=== PATIENT | female | born 1995 | race Two or more races ===

== ENCOUNTER 2024-05-03 22:44 | Emergency (ER) | payer OTHER, SELFPAY ==
--- NOTE | 2024-05-03 | ECG_ITS ---
Test Reason : CHEST PAIN Blood Pressure : */* mmHG Vent. Rate : 67 BPM Atrial Rate : 67 BPM P-R Int : 120 ms QRS Dur : 88 ms QT Int : 402 ms P-R-T Axes : 69 66 44 degrees QTcB Int : 424 ms Normal sinus rhythm Normal ECG No previous ECGs available Referred By: Generic ED Physician Electronically Signed By: Vinny Singh
--- NOTE | ~2024-05-03 | XR_ITS ---
CLINICAL HISTORY: chest pain 2 view chest x-ray Comparison: None Findings: The lungs are clear. Normal size heart. No acute fracture. IMPRESSION: 1. No acute findings. This document has been electronically signed by: Oli Leone MD on 05/04/2024 00:00:00
[2024-05-03 22:52] VITALS: BP 126/56; PULSE 74; RESP 17; TEMP 36.8; O2SAT 95; BMI 46.9
[2024-05-03 23:10] LABS: MANUAL DIFF FLAG NO
[2024-05-03 23:11] LABS: Basophils Absolute Auto 0.1 X10*3/uL (0.0-0.2); Basophils Percent Auto 0.6 % (0-2); Eosinophils Absolute Auto 0.3 X10*3/uL (0.0-0.4); Eosinophils Percent Auto 2.9 % (0-4); Hematocrit 36.5 % (37.0-47.0); Hemoglobin 12.3 g/dl (12.0-16.0); Imm Gran Abs Auto 0.03 X10*3/uL (0.00-0.03); Imm Gran Pct Auto 0.3 % (0.0-0.4); Lymphocytes Absolute Auto 3.8 X10*3/uL (1.2-4.9); Lymphocytes Percent Auto 32.9 % (20-40); Mean Corpuscular HGB Conc 33.7 g/dl (31.0-35.0); Mean Corpuscular Hemoglobin 29.8 pg (27.0-33.0); Mean Corpuscular Volume 88.4 fL (80.0-98.0); Mean Platelet Volume 9.3 fL (9.4-12.3); Monocytes Absolute Auto 1.1 X10*3/uL (0.1-1.2); Monocytes Percent Auto 9.1 % (2-11); Neutrophils Absolute Auto 6.3 x10*3/uL (2.0-8.3); Neutrophils Percent Auto 54.2 % (45-73); Platelet Count 239 X10*3/uL (160-400); Red Blood Count 4.13 X10*6/uL (4.20-5.50); Red Cell Distribution Width 11.9 % (11.0-16.0); White Blood Count 11.6 X10*3/uL (4.8-10.8)
[2024-05-03 23:29] LABS: Alanine Aminotransferase 14 U/L (0-31); Albumin Level 3.8 g/dL (3.5-5.0); Alkaline Phosphatase 74 U/L (39-117); Anion Gap 14 (12-20); Aspartate Amino Transferase 21 U/L (5-31); Bilirubin Total 0.3 mg/dL (0.0-1.0); Blood Urea Nitrogen 15 mg/dL (9-16); Calcium 9.1 mg/dL (8.4-10.2); Carbon Dioxide 20 mmol/L (22-29); Chloride 110 mmol/L (96-108); Creatinine Clr Calc Pharmacy 154.4; Estimated Glomerular Filt Rate > 60; Glucose Random 95 mg/dL (60-115); Potassium 3.7 mmol/L (3.3-5.1); Sodium 140 mmol/L (135-145); Total Protein 7.7 g/dL (6.5-8.0)
[2024-05-03 23:35] LABS: Troponin-I High Sensitivity < 2.7 ng/L (<3.5-17.0)
[2024-05-03 23:47] LABS: Influenza A PCR NEGATIVE (Negative); Influenza B PCR NEGATIVE (Negative); Resp Syncy Virus RNA Qual PCR NEGATIVE (Negative); SARS COV2 PCR INHOUSE NEGATIVE (Negative)
--- NOTE | 2024-05-04 00:06 | ED_ITS ---
HPI - Chest Pain General Chief Complaint: Chest Pain Stated Complaint: chest pain/epileptic Time Seen by Provider: 05/03/24 23:37 Source: patient, RN notes reviewed and old records reviewed Mode of arrival: ambulatory Limitations: no limitations History of Present Illness ED Provider: Xin NIXON narrative: 29-year-old Female past medical history significant for epileptic seizures Patient reports that she started with chest pain about 6 days ago. The pain was initially intermittent. Today the patient reports that her pain became constant. She reports some occasional palpitations nausea Denies any fevers, chills, cough, shortness of breath She reports that she had a similar episode about 2 years ago when she was She takes Keppra for her history of epilepsy She reports that she skipped a few doses 4 days but did take it today Related Data Allergies Allergy/AdvReac Type Severity Reaction Status Date / Time No Known Allergies Allergy Verified 05/03/24 22:54 Review of Systems 2 Constitutional: Constitutional: Denies body ache(s), Denies chills, Denies fever(s) and Denies headache(s) Eyes: Eyes: Denies blurry vision ENT: Denies vertigo, Denies dizziness and Denies headache(s) Cardiovascular: Cardiovascular: Reports chest pain and Reports lightheadedness Respiratory: Respiratory: Denies cough Gastrointestinal: Gastrointestinal: Denies abdominal pain, Reports nausea and Denies vomiting Musculoskeletal: Musculoskeletal: Denies back pain Integumentary/Breasts: Skin/Breast: Denies rash Neurologic: Denies vertigo, Denies dizziness and Denies headache(s) PMFSH Social History Social History Advance Directives: No Advance Directives Information Provided: Yes Do you have a plan to hurt others: No Plan Physical Exam 2 Vital Signs: Vital Signs: Last Vital Signs Temp 98.2 F 05/03/24 22:52 Pulse 74 05/03/24 22:52 Resp 17 05/03/24 22:52 BP 126/56 L 05/03/24 22:52 Pulse Ox 95 05/03/24 22:52 O2 Del Method Room Air 05/03/24 22:52 BMI result Body Mass Index 46.9 Const: General: healthy appearing, comfortable, no acute distress, alert and awake Nutritional Appearance: well nourished Orientation/consciousness: p atient oriented x3 HEENT: Head: Yes normocephalic and Yes atraumatic Eyes: Eyelids: Yes eyelids normal Conjunctivae: conjunctivae normal S clerae: sclerae normal Corneas: corneas normal Pupils: Equal, round and reactive pupils present EOM: EOMs intact bilaterally Neck: Neck: Yes full ROM Resp: Effort & Inspection: normal respiratory effort, able to speak in complete sentences, no audible wheezes and not labored Auscultation: clear to auscultation bilaterally Cardio: Rate: regular rate Rhythm: regular rhythm GI: Inspection: No distended Palpation (GI): Soft to palpation, not firm, nontender, no guarding and not rigid Skin: General skin exam: elasticity normal Neuro: General: patient oriented x3 Cranial nerves: Yes Equal, round and reactive pupils present and Yes Bilaterally intact EOM present Cognition (Neuro): normal cognition Medical Decision Making Medical Decision Making [facility] Narrative: 29-year-old female presents for evaluation of chest pain. She actually he reports that her chest pain has resolved at time my evaluation. Her pain has been intermittent several days now and a troponin is negative, EKG is nonischemic, she rules out for ACS. Her chest x-ray was clear, no is likely musculoskeletal in origin. I discussed this with the patient and she will follow up with her primary doctor. Differential Diagnosis Differential Diagnoses: The differential diagnosis associated with the presentation includes Chest pain ACS less likely Bronchitis/pneumonia Chest wall pain Admission/Observation Consideration of admission/observation: Escalation of care including admission/observation considered Lab Data [facility] Lab Attestation statement: I reviewed the patient's lab results. Mild leukocytosis to 11.6 which could be reactive or related to a virus. The patient does not have a left shift. No significant electrolyte abnormalities warranting intervention 05/03/24 23:00 05/03/24 23:00 Labs: Lab Results 05/03/24 Range/Units 23:00 WBC 11.6 H (4.8-10.8) X10*3/uL RBC 4.13 L (4.20-5.50) X10*6/uL Hgb 12.3 (12.0-16.0) g/dl Hct 36.5 L (37.0-47.0) % MCV 88.4 (80.0-98.0) fL MCH 29.8 (27.0-33.0) pg MCHC 33.7 (31.0-35.0) g/dl RDW 11.9 (11.0-16.0) % Plt Count 239 (160-400) X10*3/uL MPV 9.3 L (9.4-12.3) fL Immature Gran % (Auto) 0.3 (0.0-0.4) % Neut % (Auto) 54.2 (45-73) % Lymph % (Auto) 32.9 (20-40) % Luna % (Auto) 9.1 (2-11) % Eos % (Auto) 2.9 (0-4) % Baso % (Auto) 0.6 (0-2) % Lymph # (Auto) 3.8 (1.2-4.9) X10*3/uL Luna # (Auto) 1.1 (0.1-1.2) X10*3/uL Eos # (Auto) 0.3 (0.0-0.4) X10*3/uL Baso # (Auto) 0.1 (0.0-0.2) X10*3/uL Abs Immat Gran (auto) 0.03 (0.00-0.03) X10*3/uL Absolute Neuts (auto) 6.3 (2.0-8.3) x10*3/uL Absolute Nucleated RBC 0.000 (0.0-0.012) X10*3/uL Nucleated RBC % (auto) 0.0 (0.0-0.2) /100WBC Sodium 140 (135-145) mmol/L Potassium 3.7 (3.3-5.1) mmol/L Chloride 110 H (96-108) mmol/L Carbon Dioxide 20 L (22-29) mmol/L Anion Gap 14 (12-20) BUN 15 (9-16) mg/dL Creatinine 0.62 (0.5-1.4) mg/dL Estim Creat Clear Calc 154.4 Estimated GFR > 60 Random Glucose 95 (60-115) mg/dL Calcium 9.1 (8.4-10.2) mg/dL Total Bilirubin 0.3 (0.0-1.0) mg/dL AST 21 (5-31) U/L ALT 14 (0-31) U/L Alkaline Phosphatase 74 (39-117) U/L Troponin I High Sens < 2.7 (<3.5-17.0) ng/L Total Protein 7.7 (6.5-8.0) g/dL Albumin 3.8 (3.5-5.0) g/dL Influenza Type A (PCR) NEGATIVE (Negative) Influenza Type B (PCR) NEGATIVE (Negative) RSV RNA Qual (PCR) NEGATIVE (Negative) SARS-CoV-2 RNA (RT-PCR) NEGATIVE (Negative) Independent Interpretation I performed an independent interpretation of an: EKG Interpretation: Sinus rhythm with a rate of [address] segment elevations or depression Radiology Impression Discussion of test interpretation with radiology: I have reviewed the radiologist's reading. Radiologist Impression: Findings: The lungs are clear. Normal size heart. No acute fracture. IMPRESSION: 1. No acute findings. This document has been electronically signed by: Oli Leone MD on 05/04/2024 00:00:00 Discharge Plan Discharge Clinical Impression: Chest pain Patient Disposition: Home, Self-Care Instructions: Chest Pain (ED) Additional Instructions: Your workup in the ER today was reassuring. This includes your blood work, EKG, chest x-ray Your chest pain may be musculoskeletal in origin. I recommend using ibuprofen or Tylenol for the pain Follow-up with your primary doctor, return for new or worsening symptoms Print Language: Colombian
[2024-05-04 00:28] VITALS: BP 126/56; PULSE 74; RESP 17; TEMP 36.8; O2SAT 95
== END 2024-05-04 00:28 | disposition home or self-care (01) ==
PROVIDERS: Emergency Provider Emergency Medicine; PCP Internal Medicine
DX: R07.9 Chest pain, unspecified (principal); Z03.818 Encounter for observation for suspected exposure to other biological agents ruled out
CPT/HCPCS: 0241U; 71046; 80053; 84484; 85025; 93005; 99283

== ENCOUNTER → 2024-05-03 22:48 | Outpatient (BNV) | payer OTHER, SELFPAY | PROVIDERS: Emergency Provider Emergency Medicine; PCP Internal Medicine; Visit Provider Internal Medicine Cardiovascular Disease | DX: R07.9 Chest pain, unspecified (principal) | CPT/HCPCS: 93010 ==

== ENCOUNTER → 2024-05-03 23:00 | Outpatient (BNV) | payer OTHER, SELFPAY | PROVIDERS: Emergency Provider Emergency Medicine; PCP Internal Medicine; Visit Provider Radiology Diagnostic Radiology | DX: R07.9 Chest pain, unspecified (principal) | CPT/HCPCS: 71046 ==

== ENCOUNTER 2024-12-03 19:21 | Emergency (ER) | payer OTHER, SELFPAY ==
--- NOTE | ~2024-12-03 | XR_ITS ---
CLINICAL HISTORY: CONSTIPATION 1 view abdomen Comparison: None provided Findings: No pneumoperitoneum or pneumatosis. No significant stool burden. No abnormal calcifications. No acute fractures. IMPRESSION: The bowel gas pattern is normal. No significant stool burden. This document has been electronically signed by: Kaya Farias MD on 12/03/2024 23:03:43
[2024-12-03 19:56] VITALS: BP 130/77; PULSE 106; RESP 16; TEMP 36.8; O2SAT 100; BMI 45.0
[2024-12-03 20:24] LABS: MANUAL DIFF FLAG NO
[2024-12-03 20:31] LABS: Hematocrit 39.2 % (37.0-47.0); Hemoglobin 13.0 g/dl (12.0-16.0); Imm Gran Abs Auto 0.04 X10*3/uL (0.00-0.03); Imm Gran Pct Auto 0.3 % (0.0-0.4); Lymphocytes Absolute Auto 2.7 X10*3/uL (1.2-4.9); Mean Corpuscular HGB Conc 33.2 g/dl (31.0-35.0); Mean Corpuscular Hemoglobin 28.5 pg (27.0-33.0); Mean Corpuscular Volume 86.0 fL (80.0-98.0); NRBC Abs Auto 0.000 X10*3/uL (0.0-0.012); NRBC Pct Auto 0.0 /100WBC (0.0-0.2); Platelet Count 299 X10*3/uL (160-400); Red Blood Count 4.56 X10*6/uL (4.20-5.50); White Blood Count 12.1 X10*3/uL (4.8-10.8)
[2024-12-03 20:41] LABS: Alanine Aminotransferase 28 U/L (0-31); Albumin Level 4.6 g/dL (3.5-5.0); Alkaline Phosphatase 73 U/L (39-117); Anion Gap 11 (12-20); Aspartate Amino Transferase 29 U/L (5-31); Blood Urea Nitrogen 8 mg/dL (9-16); Calcium 9.7 mg/dL (8.4-10.2); Carbon Dioxide 27 mmol/L (22-29); Chloride 106 mmol/L (96-108); Creatinine Clr Calc Pharmacy 145.9; Estimated Glomerular Filt Rate > 60; Potassium 3.7 mmol/L (3.3-5.1); Sodium 140 mmol/L (135-145); Total Protein 8.4 g/dL (6.5-8.0)
[2024-12-03 21:36] VITALS: BP 113/42; PULSE 81; RESP 18; TEMP 36.9; O2SAT 100
--- OUTSIDE RECORDS SUMMARY | 2024-12-03 21:37 | XMS_ITS | Encounter Summary ---
Author Organization [facility] Address [address] [place] [address] Care Team Providers Care Commercial Horticulture Instructor Name Role Phone William Matta MD Primary Care Provider [phone] Reason for Visit * Reason Onset Date Comments Constipation 12/03/2024 Encounter Details Date Type Department Care Team ([facility] st Contact Info) Description 12/03/2024 Telephone Internal Medicine - [facility] [address] [place] [address] William Matta MD [address] [place] [address] Social History Tobacco Use Types Packs/Day Years Used Date Smoking Tobacco: Never Smokeless Tobacco: Never Alcohol Use Standard Drinks/Week Comments Yes 0 (1 standard drink = 0.6 oz pur e alcohol) Comments No Sex and Gender Information Value Date Recorded Sex Assigned at Not on file Legal Sex Female 1:12 AM EST Gender Identity Not on file Sexual Orientation Not on file documented as of this encounter Progress Notes * Annemarie Geronimo RN - 12/03/2024 2:35 PM EDT Spoke with pt she is c/o constipation and hemorrhoids, pt did have a BM and feels better she is c/opain in anus and has hemorrhoidal pain. Pt has been drinking prune juice taking Miralax, she is drinking coffee, taking chocolate laxatives. Pt already has appt in . for today. * Kaylyn Major MA - 12/03/2024 2:25 PM EDT Re routed to [facility]. * Hui Castaneda - 12/03/2024 11:16 AM EDT Patient call requires triage: Symptoms patient is presenting: wants a call back regarding constipation pt has How long has patient had these symptoms?: For ALL patients calling to schedule any appointment (routine, sick visit, follow up, consult, etc.) in the outpatient setting please ask the following questions: Do you have fever of higher than 101, sore throat with difficulty swallowing or severe shortness ofbreath? If YES to any of these above symptoms, send a message to triage and do not book. Red dot. If no, an audio or video visit should be booked. Have you had close contact with someone with Coronavirus in the last 14 days? Have you traveled abroad? Have you traveled recently to another state outside of [place], [place], [place], [place], [place], [place], [place]? o If yes, did you quarantine for 14 days or have a negative covid test? If yes to any of the above, patient is not to be scheduled in office until after 14 day quarantine or negative covid test. If pain or injury related was it due to an accident at work or from a motor vehicle accident? If yes, date of accident/Injury: If yes, gather 3rd constitution party insurance information Third Republican Information: PCP: William Matta MD Payor: [employer] [facility] / Plan: [facility] MEDICAID / Product Type: *No Product type* / documented in this encounter Plan of Treatment Upcoming Encounters Date Type Department Care Team (Late st Contact Info) Description 01/05/2025 4:00 PM EST Clinical Support Obstetrics and Gynecology - [address] [phone] 03/17/2025 10:15 AM EST Office Visit Bariatric Surgery - [address] [place] [id number] Lilliam Cat PA [address] [place] [phone] documented as of this encounter Visit Diagnoses Not on filedocumented in this encounter Care Teams Commercial Horticulture Instructor Relationship Specialty Start Date End Date William Matta MD [address] [place] [address] PCP - General Internal Medicine 04/06/24 documented as of this encounter
--- OUTSIDE RECORDS SUMMARY | 2024-12-03 21:37 | XMS_ITS | Patient Health Record ---
Author Organization [facility] Address [address] [place] [address] Care Team Providers Care Hand Binder Stripper Name Role Phone Joya Dooley Primary Care Provider CAROLINE Gale Unavailable [phone] Allergies Allergen (clinical drug ingredient) Drug/Non Drug Allergy documented on EMR Reaction Allergy Type Onset Date Status codeine Codeine Sulfate hives Drug Allergy A ctive Reason For Referral No Information Medications Medication SIG (Take, Route, Frequency, Duration) Notes Start Date End Date Status Phentermine HCl Not- Taking Keppra 500 MG 1 tablet Orally Twic e a day 05/23/2017 Not-Taking Folic Acid 1 MG 1 tablet Orally Once a day; Duration: 30 day(s) 10/02/2019 Active Keppra 750 MG Orally Twice a day Not-Taking Plus 27-1 MG 1 tablet Orally On ce a day; Duration: 30 day(s) 05/23/2017 Not-Tony ing Iron Not-Taking Folic Acid 1 MG 1 tablet Orally Once a day; Duration: 30 day(s) 08/01/2017 Not-Tony ing Active Lotrisone 1-0.05 % 1 application Call Worker ally Twice a day; Duration: 7 days 05/08/2019 Not-Taking Terconazole 0.8 % 1 applicatorful at b edtime Vaginal Once a day; Duration: 3 day(s) 05/08/2019 Not-Taking Terconazole 0.8 % 1 applicatorful at b edtime Vaginal Once a day; Duration: 3 day(s) 11/19/2018 Not-Taking Topamax Not-Taking Colace 100 MG 1 capsule Orally twi ce a day as needed; Duration: 30 days 12/28/2019 Active Immunizations Vaccine Route Administration Date Status Comme nts Tdap IM Intramuscular 02/05/2020 Administered Influenza IM Intramuscular 10/23/2019 Administered Social History Tobacco Use: Social History Observation Description Date Details (start date - stop date) Never Smoker NA - NA Tobacco Use/Smoking Question Answer Notes Are you a nonsmoker Alcohol Screen Question Answer Notes Did you have a drink containing alcohol in the p ast year? No Points 0 Interpretation Negative Sexual History Question Answer Notes Had sex in the past 12 months (vaginal, oral, or anal)? Yes BMI Management Question Answer Notes Above Normal BMI Follow-up Dietary manag ement education, guidance, and counseling Problems Problem Type SNOMED Code ICD Code Onset Dates Problem Status W/U Status Risk Notes Problem Breech presentation (3174715) Maternal care for breech presentation, not applicable or unspecified (O32.1XX0) Active confirmed Plan Of Treatment Pending Test Test Name Order Date Uric Acid, Serum 05/23/2017 AST (SGOT) 05/23/2017 ALT (SGPT) 05/23/2017 HIV 1-2 ANTIBODY SCREEN 02/05/2020 HIV 1-2 ANTIBODY SCREEN 05/23/2017 HIV 1-2 ANTIBODY SCREEN 10/02/2019 CBC & AUTOMATED DIFFERENTIAL 07/25/2017 CBC & AUTOMATED DIFFERENTIAL 05/23/2017 CBC & AUTOMATED DIFFERENTIAL 02/05/2020 CBC & AUTOMATED DIFFERENTIAL 10/02/2019 CREATININE - SERUM 05/23/2017 CREATININE - SERUM 07/25/2017 URICACID 07/25/2017 SGOT/AST 07/25/2017 SGPT 07/25/2017 GLUCOSE - 1 HR POST GLUCOLA OB 0 GLUCOSE - 1 HR POST GLUCOLA OB 0 GLUCOSE - 1 HR POST GLUCOLA OB 8 URINALYSIS COMPLETE-AUTOMATED 10/02/2019 URINALYSIS COMPLETE-AUTOMATED 07/25/2017 URINALYSIS COMPLETE-AUTOMATED 08/23/2017 TSH 10/02/2019 HCG QUANT 09/10/2019 RPR 02/05/2020 RPR 10/02/2019 RPR 05/23/2017 TYPE & SCREEN 10/02/2019 ANTIBODY SCREEN 10/02/2019 URINE CULTURE AND COLONY COUNT 0 URINE CULTURE AND COLONY COUNT 8 UR CULT TIERA 05/23/2017 UR CULT TIERA 02/05/2020 OXYCOD UR SCR 05/23/2017 OXYCOD UR SCR 02/05/2020 OXYCOD UR SCR 10/02/2019 SAP 10/02/2019 SAP 05/23/2017 SAP 02/05/2020 RUBELLA IGG 10/02/2019 TSH 11/26/2019 BUPREN UR SCR 10/02/2019 BUPREN UR SCR 02/05/2020 BUPREN UR SCR 05/23/2017 UPC RATIO 05/23/2017 UPC RATIO 07/25/2017 GRP B STREP DNA 07/25/2017 BIOPHYSICAL PROFILE 03/17/2020 TRANSVAGINAL--OB 11/16/2019 CBC 11/26/2019 HEPATITIS B SURFACE ANTIGEN 10/02/2019 HEPATITIS C ANTIBODY 10/02/2019 Panorama Test 10/02/2019 Horizon 14 (CAI-ETHNIC STANDARD) 020 Future Test Test Name Order Date HCG SERUM QUANT 11/05/2017 Ultrasound : OB BPP/ANTONETTE 02/26/2020 Ultrasound : OB Complete F/U after 1st T ri 02/26/2020 Insurance Providers Payer Name Payer Address Payer Phone Subscriber Number Group Number Insured Name Patient Relationship to Insured Coverage Start Date Coverage End Date [employer] [employer] [facility] [address] [address] [place] [address] [id number] Nneka Scott Self - patient is the insured [place] [address] [place], [place] [id number] Nneka Scott Self - patient is the insured Medical (General) History Medical History History ICD Code epilepsy Surgical History Surgery Date(Month/Year) section Hospitalization History Reason Date(Month/Year) childbirth x1
--- OUTSIDE RECORDS SUMMARY | 2024-12-03 21:37 | XMS_ITS | Clinical Summary ---
Author Organization [facility] Address [address] [place] [address] Care Team Providers Care Commissions Coordinator Name Role Phone William Matta MD Primary Care Provider [phone] Allergies Active Allergy Reactions Criticality Noted Date Comments Codeine Rash 12/18/2022 Medications norethindrone (MICRONOR) 0.35 mg tablet Take 0.35 mg by mouth. 3 Active calcium carbonate 1,250 mg/5 mL suspension Take 1 tablet by mouth. Active levETIRAcetam XR (KEPPRA XR) 750 mg SMARTSI Tablet(s) By Mouth Every Night 3 Active cetirizine (ZyrTEC) 10 mg tablet SMARTSI Tablet(s) By Mouth Daily 2 Active Flovent HFA 220 mcg/actuation inhaler SMARTSI Puff(s) By Mouth Twice Daily 3 Active fluticasone propionate (FLONASE) 50 mcg/actuation nasal spray TAKE 2 SPRAYS (INTRANASAL) DAILY FOR 10 DAYS 2 Active Ventolin HFA 90 mcg/actuation inhaler INHALE 2 PUFFS EVERY 4 HOURS NEEDED FOR SHORTNESS OF BREATH. 3 Active dulaglutide (TRULICITY) 1.5 mg/0.5 mL injection dose Inject 0.5 mL (1.5 mg total) under the skin every 7 days. 2 mL 1 4 Active Trulicity 0.75 mg/0.5 mL injection dose INJECT 0.5 ML SUBCUTANEOUSLY ONE TIME PER WEEK 0.5 mL 1 4 Active metFORMIN (GLUCOPHAGE) 500 mg tablet TAKE 1 TABLET BY MOUTH TWICE A DAY WITH FOOD 180 tablet 1 4 Active Active Problems Problem Noted Date Diagnosed Date Prediabetes 12/18/2022 Abnormal weight gain 05/30/2022 Assessment & Plan (05/30/2022 1:45 PM EDT): Obesity Class III with severe co-morbidities - Stage 1 and abnormal weight gain Obesity, likely multifactorial, with likely genetic predisposition - I rec genetic testing The readiness for intensive lifestyle modifications was assessed and the patient appears to be motivated to make changes. Intensive lifestyle modifications were discussed in detail and listed in the patient instructions Ms. Hamilton was advised to continue a structural lifestyle modification program. Patient will be managed with LSM and medical treatment of obesity. Ms. Hamilton at high risks for co-morbidities related to obesity, which include, but not limited cardiovascular diseases:CAD, CHF, poor controlled HTN, stroke, respiratory conditions, such CRPD, LUZ, GI condition: NAFLD and LAWSON as a concerning start for developing liver cirrhosis, depression, cancers of colon, liver, POSTDOCTORAL RESEARCH FELLOW system and etc Will obtain labs as listed in the orders to assess for possible metabolic abnormalities related to weight gain An initial weight loss goal of 5 to 7 percent of body weight is realistic .A weight loss of more than 5 percent can reduce risk factors for cardiovascular disease, such as dyslipidemia, hypertension and diabetes mellitus Uncomplicated asthma 05/30/2022 Class 3 obesity with alveola r hypoventilation without serious comorbidity with body mass index (BMI) of 50.0 to 59.9 in adult 05/30/2022 Epilepsia 05/30/2022 Goiter 05/30/2022 Assessment & Plan (05/30/2022 1:43 PM EDT): Ph/ ex concerning for MNG Advised on neck US Family History * Patient is adopted Medical History Relation Name Comments Cancer Paternal Grandmother Diabetes Paternal Grandmother Relation Name Status Comments Paternal Grandmother Social History Tobacco Use Types Packs/Day Years Used Date Smoking Tobacco: Never Smokeless Tobacco: Never Alcohol Use Standard Drinks/Week Comments Never 0 (1 standard drink = 0.6 oz pur e alcohol) Comments Unknown Sex and Gender Information Value Date Recorded Sex Assigned at Female 05/29/2022 2:18 PM EDT Legal Sex Female 12:40 PM EDT Gender Identity Female 05/29/2022 2:18 PM EDT Sexual Orientation Straight 05/29/2022 2: 18 PM EDT Occupation Industry Job Start Date Job End Date starts working at [employer] Not on file Not on file No t on file Last Filed Vital Signs Vital Sign Reading Time Taken Comments Blood Pressure 127/80 04/19/2023 1:30 PM EST Pulse 76 04/19/2023 1:30 PM EST Temperature - - Respiratory Rate - - Oxygen Saturation - - Inhaled Oxygen Concentration - - Weight 97.3 kg (214 lb 8.1 oz) 04/19/2023 1:30 P M EST Height 155 cm (5' 1.02 ) 12/18/2022 9:41 AM EDT Body Mass Index 40.5 12/18/2022 9:41 AM EDT Plan of Treatment Health Maintenance Due Date Last Done Comments Cervical Cancer Screening 1994 HIV Screening 1994 HPV and Pap Smear 1994 Hepatitis C Screening 1994 Pap Smear 1994 Varicella Vaccines (1 of 2 - 13+ 2-dose series) 05/04/2007 Hepatitis B Vaccines (1 of 3 - 19+ 3-dose series) 2013 Pneumococcal Vaccine: Pediat harry (0-5 Years) and At-Risk Patients (6-50 Years) (1 of 2 - PCV) 2013 Alcohol/Substance Use Screening 02/19/2024 Depression Screening and Follow-Up 02/19/2024 Social Drivers of Health Yeimi ual Screening 02/19/2024 COVID-19 Vaccine (3 - 2024- season) 2024, 10/06/2020 Influenza Vaccine (#1) 2024 11/17/2018 DTaP,Tdap,and Td Vaccines (4 - Td or Tdap) 05/08/2031 05/07/2021, 02/05/2020, 08/19/2017 RSV Vaccine (60+ years old a nd patients) (1 - 1-dose 75+ series) 2069 Insurance HSNO/FREE CARE Care Teams Commissions Coordinator Relationship Specialty Start Date End Date William Matta MD [address] [place] [address] PCP - General 09/04/21
--- OUTSIDE RECORDS SUMMARY | 2024-12-03 21:37 | XMS_ITS ---
Author Name [facility] Organization Unknown Care Team Organization Name Specialty Phone Email Start Date End Da te [facility] William Matta Primary Care 12/26/[id number]
--- OUTSIDE RECORDS SUMMARY | 2024-12-03 21:37 | XMS_ITS | Encounter Summary ---
Author Organization [facility] Address [address] [place] [address] Care Team Providers Care Tonnage Compilation Clerk Name Role Phone William Matta MD Primary Care Provider [phone] Encounter Details Date Type Department Care Team (Late st Contact Info) Description 06/12/2022 Telephone [facility] [address] [place] [phone] Telephone Intake, Staff Social History Tobacco Use Types Packs/Day Years [...] Date Job End Date starts working at [employer] Not on file Not on file No t on file documented as of this encounter Miscellaneous Notes * Telephone Encounter - Lizzie Franco - 06/12/2022 10:06 AM EDT Pt needs to cx and reschedule appt on 06/18 - the DT doesn't allow us to reschedule these visit types, Thank you very much! - Pac documented in this encounter Plan of Treatment Not on file documented as of this encounter Visit Diagnoses Not on filedocumented in this encounter Care Teams Tonnage Compilation Clerk Relationship Specialty Start Date End Date William Matta MD [address] [place] [address] PCP - General 09/04/21 documented as of this encounter
--- OUTSIDE RECORDS SUMMARY | 2024-12-03 21:37 | XMS_ITS | Clinical Summary ---
Author Organization [facility] Address [address] [place] [phone] Phone Care Team Providers Care Signals Intelligence Analyst Name Role Phone William Matta MD Primary Care Provider [phone] Allergies Active Allergy Reactions Criticality Noted Date Comments Codeine 08/09/2021 Medications levETIRAcetam (KEPPRA) 750 mg tablet Take 1 tablet (750 mg total) by mouth. 2 Active polyethylene glycol (PEG) 17 gram/dose oral powder TAKE 17 GRAMS MIXED IN 8 OUNCES OF LIQUID AND TAKEN BY MOUTH ONCE EVERY DAY 510 g 5 Active tirzepatide, weight loss, (Zepbound) 10 mg/0.5 mL injectionIndica tions:Morbid obesity (CMS/HCC V24, CMS/HCC V28) Inject 0.5 mL (10 mg total) under the skin every 7 (seven) days. 2 mL 5 Active tirzepatide, weight loss, (Zepbound) 10 mg/0.5 mL injectionIndica tions:Morbid obesity (CMS/HCC V24, CMS/HCC V28) Inject 0.5 mL (10 mg total) under the skin every 7 (seven) days. 2 mL 5 11/25/19 25 Discontinu ed(Reorder ) Active Problems Problem Noted Date Diagnosed Date Anxiety and depression 06/30/2024 Assessment & Plan (06/30/2024 11:45 AM EDT): I encouraged her to contact her insurance to get set up with therapist again and continue regular exercise. She agreed. Denies SI, HI. Morbid obesity ([facility] [place]24, [facility] V28) 2023 Prediabetes 12/18/2022 Goiter 05/30/2022 Abnormal weight gain 05/30/2022 Uncomplicated asthma 05/30/2022 Nonintractable epilepsy with out status epilepticus ([facility] V24, [facility] V28) 08/09/2021 Encounters Date Type Department Care Team Description 12/03/2024 [facility]phone [facility] [address] [facility] [place] [place] [phone] William Matta MD 11/24/2024 Telephone Bariatric Surgery [address] [phone] Lilliam Cat PA 10/15/2024 11:00 AM EDT Office Visit Bariatric Surgery [address] [phone] Lilliam Cat PA Morbid obesity ([facility] V24, [facility] V28) (Primary Dx) 10/15/2024 Telephone Walk-In Clinic [facility] [address] [place] [phone] Jc Cisneros PA 10/13/2024 Telephone Obstetrics and Gynecology - [address] [phone] Socorro Piedra DO 09/24/2024 Telephone Bariatric Surgery [address] [phone] Lilliam Cat PA 09/24/2024 Telephone Bariatric Surgery [address] [phone] Lilliam Cat PA 09/04/2024 4:00 PM EDT Clinical Support Obstetrics and Gynecology - [address] [phone] Need for vaccination against human papillomavirus (Primary Dx); Need for HPV vaccine from Last 3 Months Immunizations Immunization Administration Dates Next Due HPV 9-valent (Gardisil) 9yo to less than 46yo ,06/30/2024 08/30/2024 Surgical History Surgery Date Site/Laterality Comments SECTION PROCEDURE: [facility]; COMMENT: 2017 SECTION PROCEDURE: [facility]; COMMENT: 2020 Medical History Medical History Date Comments Epilepsy (CMS/[facility] V24, CMS/[facility] V28) DX:Epilepsy (HCC) BRCA gene positive DX:BRCA gene positive Family History Medical History Relation Name Comments Breast cancer Aunt Other: epilepsy Father Alcohol/Drug Mother Colon cancer Paternal Grandmother Ovarian cancer Neg Hx Pancreatic cancer Neg Hx Uterine cancer Neg Hx Relation Name Status Comments Aunt Alive Father Alive Mother Alive Paternal Grandmother Social History Tobacco Use Types [...] on file Sexual Orientation Not on file Obstetrics History Para Term AB IAB SAB Ectopic Multiple Livin g Live Births 2 Date Outcome GA Total Labor Labor/2nd/3rd Weight Sex Type Anes PTL Cristy A1 A5 Name Clin Last Filed Vital Signs Vital Sign Reading Time Taken Comments Blood Pressure 122/79 10/15/2024 10:58 AM EDT Pulse 120 10/15/2024 10:58 AM EDT Temperature 36.4 C (97.6 F) 09/01/2024 5:35 PM EDT Respiratory Rate 15 06/30/2024 11:04 AM EDT Oxygen Saturation 98% 09/01/2024 5:35 PM EDT Inhaled Oxygen Concentration - - Weight 114 kg (251 lb 12.8 oz) 10/15/2024 10:58 AM EDT Height 154.9 cm (5' 1 ) 10/15/2024 10:58 AM EDT Body Mass Index 47.58 10/15/2024 10:58 AM EDT Plan of Treatment Upcoming Encounters Date Type Department Care Team (Late st Contact Info) Description 01/05/2025 4:00 PM EST Clinical Support Obstetrics and Gynecology [address] [phone] 03/17/2025 10:15 AM EST Office Visit Bariatric Surgery - [address] [place] [phone] Lilliam Cat PA [address] [place] [phone] Health Maintenance Due Date Last Done Comments Hepatitis B Vaccines (1 of 3 - 19+ 3-dose series) 2013 Pneumococcal Vaccine: Pediatrics (0 to 5 Years) and At-Risk Patients (6 to 49 Years) (1 of 2 - PCV) 2013 Social Influencers of Health Screening 01/28/2022 Depression Screening 02/19/2024 COVID-19 Vaccine (1 - 2023-2 5 season) 2024 Influenza Vaccine (#1) 2024 HPV Vaccines (3 - 3-dose SCD M series) 12/31/2024 09/04/2024, 06/30/2024 Cholesterol Screening (Lipid Panel) 12/22/2026 12/22/2021 Cervical Cancer Screening: HPV 06/30/2029 0 06/30/2024, 08/17/2021 DTaP,Tdap,and Td Vaccines (2 - Td or Tdap) 05/08/2031 05/07/2021 RSV Immunization Adult Patients (1 - 1-dose 75+ series) 2069 HIV Screening Completed 08/17/2021 Hepatitis C Screening Completed 07/17/2024 , 08/17/2021 HIB Vaccines Aged Out No longer eligi ble based on patient's age to complete this topic Hepatitis A Vaccines Aged Out No long er eligible based on patient's age to complete this topic IPV Vaccines Aged Out No longer eligi ble based on patient's age to complete this topic MMR Vaccines Aged Out No longer eligi ble based on patient's age to complete this topic Meningococcal ACWY Vaccine Aged Out N o longer eligible based on patient's age to complete this topic Meningococcal B Vaccine Aged Out No l onger eligible based on patient's age to complete this topic RSV Immunization Patients Under 20 months Aged Out No longer eligible b ased on patient's age to complete this topic Varicella Vaccines Aged Out No longer eligible based on patient's age to complete this topic Procedures Procedure Name Priority Date/Time Associated Diagnosis Comments HEPATITIS C ANTIBODY Routine 07/17/2024 11:24 AM EDT Screen for STD (sexually transmitted disease) HPV WITH REFLEX GENOTYPE Routine 06/30/2024 11:35 AM EDT Screening for cervical cancer LIPID PANEL Routine 12/22/2021 HM HIV SCREENING Routine 08/17/2021 from Last 3 Months or Most Recently Relevant to Health Maintenance Results * Hepatitis C antibody (07/17/2024 11:24 AM EDT) Hepatitis C Antibody Negative Negative LAB CHEMISTRY METHOD 07/17/2024 4:37 PM EDT [facility] Blood Venous blood specimen / Unknown Venipuncture / Unknown 07/17/2024 11:24 AM EDT 07/17/2024 11:24 AM EDT us Nuvia Echevarria MD LAB BLOOD ORDERABLES Final Result Performing Organization Address City/[facility]/ZIP Co de Phone Number [facility] [address] [place] [address], [place] [phone] * HPV with reflex genotype (06/30/2024 11:35 AM EDT) Pathologist [facility] HPV Negative Negative LAB MICROBIOLOGY METHOD 07/01/2024 2:21 PM EDT [facility] Brushing/Spatula Cervix uteri structure / Unknown 06/30/2024 11:35 AM EDT 07/01/2024 6:21 AM EDT us Nuvia Echevarria MD LAB MOLECULAR DIAGNOSTICS O RDERABLES Final Result Performing Organization Address City/[facility]/ZIP Co de Phone Number [facility] [address] [place] [address], [place] [phone] * Lipid panel (12/22/2021) LDL/HDL Ratio 4 Triglycerides 130 mg/dL Cholesterol 152 mg/dL HDL 40 mg/dL LDL Cholesterol 86 mg/dL Blood Venous blood specimen / Unknown Historical Provider LAB BLOOD ORDERABLES Olimpia l Result * HIV Screening (08/17/2021) Pathologist [facility] HIV Screening Abstracted Historical Provider HEALTH MAINTENANCE Final Result from Last 3 Months or Most Recently Relevant to Health Maintenance Insurance [facility] [employer] Care Teams Signals Intelligence Analyst Relationship Specialty Start Date End Date William Matta MD [address] [place] [phone] PCP - General Internal Medicine 04/06/24
--- NOTE | 2024-12-03 21:56 | ED.GENADULT ---
[facility] - General Adult General Chief complaint: General Medical Stated complaint: constipation Time Seen by Provider: 12/03/24 21:55 Source: patient Mode of arrival: ambulatory Limitations: no limitations History of Present Illness ED Provider: Dr. Sunshine [facility] narrative: This is a 29-year-old female presented hospital today for evaluation of constipation. Patient stated this has been going on for past week. Patient has been taking laxative at home without any alleviation. She has been complaining of some watery diarrhea however she does have sensation in the rectal pain along with her bowel movement. Patient stated that she does feel her rectum is impacted. The stool is sticky and hard. However she states lately she is able to pass some of the sticky in hard stool in his stool appears to be softer. Related Data Previous Rx's ?Medication ?Instructions ?Recorded hydrocortisone 2.5 % topical cream 1 appl VT DAILY PRN hemorrhoids 12/04/24 with perineal applicator #30 grams magnesium citrate 150 ml PO DAILY PRN constipation 12/04/24 #296 mL ondansetron 4 mg disintegrating 4 mg PO Q8H PRN nausea and 12/04/24 tablet vomiting #14 tabs Allergies Allergy/AdvReac Type Severity Reaction Status Date / Time No Known Allergies Allergy Verified 12/03/24 20:02 Review of Systems Review of Systems: Pertinent review of systems as mentioned in [facility]. All other system otherwise negative. [facility] Past Medical History [facility] Narrative: Medical history as mentioned in [facility] Social History Social History Advance Directives: No Advance Directives Information Provided: No Physical Exam ED Exam Exam: General: Pleasant, no distress, interacting appropriately Head: Normacephalic, atraumatic ENT: oral mucosa moist, neck supple, no tracheal deviation Cardiovascular: regular rate, regular rhythm, no murmurs, rubbing, gallops Respiratory: CTAB, no wheeze, rales, rhonchi Gastrointestinal: Soft, non distended, non tender, non guarding Neurological: Awake and alert, no facial droop noted Skin: Warm and dry Psychiatric: Appropriate mood and thoughts Vital Signs: Vital Signs - 24 hr 12/03/24 19:56 12/03/24 21:36 Temperature 98.2 F 98.5 F Pulse Rate 106 H 81 Respiratory Rate 16 18 Blood Pressure 130/77 113/42 L Pulse Oximetry 100 100 Oxygen Delivery Method Room Air Room Air BMI result Body Mass Index 45.0 Medications Administered Discontinued Medications Generic Name Dose Route Start Last Admin Trade Name Elicia PRN Reason Stop Dose Admin Lidocaine HCl 1 appl 12/03/24 22:40 12/03/24 23:00 Lidocaine 4 % Cream Kit TOPICAL 12/03/24 22:41 1 appl ONCE ONE Administration Protocol Magnesium Citrate 300 ml 12/03/24 22:25 12/03/24 22:44 Magnesium Citrate 300 Ml Solution PO 12/03/24 22:26 300 ml ONCE ONE Administration Medical Decision Making Medical Decision Making MDM Narrative: 29-year-old female presented hospital today for evaluation of constipation and possible impacted rectum. Patient we will prefer to defer digital rectal exam to evaluate for impaction. We will plan to give patient an enema here. Mag citrate will be provided the patient as well. I did do an external rectal exam. No concerns on external rectal exam. We will plan to follow up the patient after medication. It see if she is able to pass her stool. cup machine operator was used for this encounter. Patient was able to have multiple bowel movement. Patient states she feels better. She does have some rectal pain. We will plan to prescribe some hydrocortisone cream for the patient. Magnesium citrate will be prescribed to the patient as well. Encouraged conservative treatment at this time. Differential Diagnosis Differential Diagnoses: The differential diagnosis associated with the presentation includes Constipation, impacted rectum, Lab Data [facility] Lab Attestation statement: I reviewed the patient's lab results. 12/03/24 20:13 12/03/24 20:13 Labs: Lab Results 12/03/24 12/03/24 Range/Units 20:13 22:59 WBC 12.1 H (4.8-10.8) X10*3/uL RBC 4.56 (4.20-5.50) X10*6/uL Hgb 13.0 (12.0-16.0) g/dl Hct 39.2 (37.0-47.0) % MCV 86.0 (80.0-98.0) fL MCH 28.5 (27.0-33.0) pg MCHC 33.2 (31.0-35.0) g/dl RDW 12.2 (11.0-16.0) % Plt Count 299 D (160-400) X10*3/uL MPV 9.5 (9.4-12.3) fL Immature Gran % (Auto) 0.3 (0.0-0.4) % Neut % (Auto) 68.3 (45-73) % Lymph % (Auto) 22.0 (20-40) % Tripp % (Auto) 7.2 (2-11) % Eos % (Auto) 1.6 (0-4) % Baso % (Auto) 0.6 (0-2) % Lymph # (Auto) 2.7 (1.2-4.9) X10*3/uL Tripp # (Auto) 0.9 (0.1-1.2) X10*3/uL Eos # (Auto) 0.2 (0.0-0.4) X10*3/uL Baso # (Auto) 0.1 (0.0-0.2) X10*3/uL Abs Immat Gran (auto) 0.04 H (0.00-0.03) X10*3/uL Absolute Neuts (auto) 8.3 (2.0-8.3) x10*3/uL Absolute Nucleated RBC 0.000 (0.0-0.012) X10*3/uL Nucleated RBC % (auto) 0.0 (0.0-0.2) /100WBC Sodium 140 (135-145) mmol/L Potassium 3.7 (3.3-5.1) mmol/L Chloride 106 (96-108) mmol/L Carbon Dioxide 27 (22-29) mmol/L Anion Gap 11 L (12-20) BUN 8 L (9-16) mg/dL Creatinine 0.64 (0.5-1.4) mg/dL Estim Creat Clear Calc 145.9 Estimated GFR > 60 POC Glucose 73 (60-115) mg/dL Random Glucose 92 (60-115) mg/dL Calcium 9.7 D (8.4-10.2) mg/dL Total Bilirubin 0.6 (0.0-1.0) mg/dL AST 29 (5-31) U/L ALT 28 (0-31) U/L Alkaline Phosphatase 73 (39-117) U/L Total Protein 8.4 H (6.5-8.0) g/dL Albumin 4.6 (3.5-5.0) g/dL Beta HCG, Quant < 2 mIU/mL Independent Interpretation I performed an independent interpretation of an: Plain X-Ray Discharge Plan Discharge Clinical Impression: Constipation Qualifiers: Constipation type: unspecified constipation type Qualified Code(s): K59.00 - Constipation, unspecified Patient Disposition: Home, Self-Care Instructions: Constipation (ED) Prescriptions: New ondansetron 4 mg tablet,disintegrating 4 mg PO Q8H PRN (Reason: nausea and vomiting) Qty: 14 0RF magnesium citrate Solution 150 ml PO DAILY PRN (Reason: constipation) Qty: 296 0RF hydrocortisone 2.5 % cream with perineal applicator 1 appl VT DAILY PRN (Reason: hemorrhoids) Qty: 30 0RF Print Language: Khmer
[2024-12-03] MEDS: Lidocaine 4 % Cream KIT 1 APPL TOPICAL (23:00)
[2024-12-03 23:08] LABS: Glucose, Whole Blood 73 mg/dL (60-115)
--- NOTE | 2024-12-04 01:11 | PC.NURSE ---
pt spent a long time in the bathroom post enema, reportslarge amount of stool, multiple times. pt feeling better, denies pain. MD at bedside to d/c pt. no new vitals taken
[2024-12-04 01:27] VITALS: BP 113/42; PULSE 81; RESP 18; TEMP 36.9; O2SAT 100
== END 2024-12-04 01:27 | disposition home or self-care (01) ==
PROVIDERS: Emergency Provider Student in an Organized Health Care Education/Training Program; PCP Internal Medicine
DX: K59.00 Constipation, unspecified (principal)
CPT/HCPCS: 36415; 74018; 80053; 82947; 84702; 85025; 99283; 99284

== ENCOUNTER → 2024-12-03 21:55 | Outpatient (BNV) | payer OTHER, SELFPAY | PROVIDERS: Emergency Provider Student in an Organized Health Care Education/Training Program; PCP Internal Medicine; Visit Provider Student in an Organized Health Care Education/Training Program | DX: K59.00 Constipation, unspecified (principal) | CPT/HCPCS: 74018 ==

== ENCOUNTER 2025-02-12 19:30 | Emergency (ER) | payer OTHER, SELFPAY ==
--- NOTE | ~2025-02-12 | XR_ITS ---
CLINICAL HISTORY: sob Chest Radiographs, 2 views Comparison: 05/03/24 Findings: No cardiomegaly. Normal mediastinal contours. No pneumothorax. No opacity. No pleural effusion. No acute findings in the upper abdomen. No acute fracture. Impression: No acute findings. This document has been electronically signed by: Prudence Bob MD on 02/12/2025 21:20:28
--- NOTE | 2025-02-12 19:32 | ECG_ITS ---
Test Reason : cp Blood Pressure : */* mmHG Vent. Rate : 73 BPM Atrial Rate : 73 BPM P-R Int : 116 ms QRS Dur : 96 ms QT Int : 380 ms P-R-T Axes : 58 68 55 degrees QTcB Int : 418 ms Normal sinus rhythm with sinus arrhythmia Normal ECG When compared with ECG of 03-May-2024 22:48, No significant change was found Referred By: Minerva Gregory Electronically Signed By: NOEL BROWN MD
[2025-02-12 19:36] VITALS: BP 142/78; PULSE 71; RESP 20; TEMP 36.3; O2SAT 100; BMI 41.7
--- NOTE | 2025-02-12 19:38 | ED_ITS ---
HPI - Chest Pain General Chief Complaint: Upper Respiratory Symptoms Stated Complaint: CP, forgetfulness, ear pain, dizziness Time Seen by Provider: 02/12/25 23:13 Source: patient and supervisor nuclear medicine Mode of arrival: ambulatory Limitations: language barrier History of Present Illness ED Provider: Ira Bhardwaj APRN HPI narrative: 29yo female with a history of seizures, asthma presents to the ER with complaints of chest tightness, dizziness, cough, left ear pain, nausea x 3 days. No shortness of breath, vomiting, diarrhea, abdominal pain, headache, neck pain, neck stiffness, fevers, chills, skin rash. No recent travel or sick contact. Related Data Previous Rx's ?Medication ?Instructions ?Recorded hydrocortisone 2.5 % topical cream 1 appl DE DAILY PRN hemorrhoids 12/04/24 with perineal applicator #30 grams magnesium citrate 150 ml PO DAILY PRN constipa tion 12/04/24 #296 mL ondansetron 4 mg disintegrating 4 mg PO Q8H PRN nausea and 12/04/24 tablet vomiting #14 tabs loratadine 10 mg tablet (Claritin) 10 mg PO DAILY #14 tabs 02/12/25 prednisone 20 mg tablet 20 mg PO DAILY #5 tabs 02/12 Allergies Allergy/AdvReac Type Severity Reaction Status Date / Time codeine Allergy Rash Verified 02/12/25 19:41 Review of Systems 2 Review of Systems: Yes all other systems are reviewed and are negative Constitutional: Constitutional: Reports no additional constitutional complaints, Denies body ache(s), Denies chills, Denies fever(s), Denies headache(s) and Denies weakness Eyes: Eyes: Reports no additional eye complaints and Denies change in vision ENT: Reports system reviewed and no additional complaints, except as documented, Reports dizziness, Reports otalgia, Denies headache(s), Denies nasal congestion, Denies nasal discharge and Denies neck pain Cardiovascular: Cardiovascular: Reports no additional cardiovascular complaints, Reports chest pain, Denies leg edema and Denies dyspnea Respiratory: Respiratory: Reports no additional respiratory complaints, Reports cough and Denies dyspnea Gastrointestinal: Gastrointestinal: Reports no additional gastrointestinal complaints, Denies abdominal pain, Denies diarrhea, Reports nausea and Denies vomiting Genitourinary: Genitourinary: Reports no additional female genitourinary complaints and Denies urinary incontinence Musculoskeletal: Musculoskeletal: Reports no additional musculoskeletal complaints, Denies back pain, Denies arthralgias, Denies joint swelling, Denies neck pain, Denies numbness and Denies tingling Integumentary/Breasts: Skin/Breast: Reports system reviewed and no additional complaints, except as docu and Denies rash Neurologic: Reports system reviewed and no additional complaints, except as documented, Denies Abnormal speech present, Reports dizziness, Denies headache(s), Denies numbness, Denies tingling and Denies weakness PMFSH Past Medical History Attestation statement: The following information was validated with the patient. Source: old records reviewed and nursing notes reviewed Social History Social History Advance Directives: No Advance Directives Information Provided: Yes Do you have a plan to hurt others: No Plan Physical Exam 2 Vital Signs: Vital Signs: Last Vital Signs Temp 97.3 F 02/12/25 19:36 Pulse 71 02/12/25 19:36 Resp 20 02/12/25 19:36 BP 142/78 H 02/12/25 19:36 Pulse Ox 100 02/12/25 19:36 O2 Del Method Room Air 02/12/25 19:36 BMI result Body Mass Index 41.7 Const: General: cooperative, healthy appearing, comfortable and no acute distress Orientation/consciousness: patient oriented x3 Limitations: no limitations HEENT: Head: Yes normal to inspection Ears: hearing grossly normal bilaterally, EAC's normal, mastoids normal, no periauricular adenopathy and TM abnormal (bilateral effusion) not erythematous General nose exam: Normal external nose present Face and sinus: Yes normal facial exam Mouth: Normal oral and palatal mucosa present Throat: Yes posterior oropharynx normal, Yes tonsils normal and Yes uvula midline Eyes: General: appearance normal, both eyes and all related structures P upils: Equal, round and reactive pupils present Neck: Neck: Yes normal visual inspection, Yes full ROM, Yes no lymphadenopathy and Yes no meningeal signs Chest: Chest palpation & inspection: normal inspection of the chest Resp: Effort & Inspection: normal respiratory effort Auscultation: wheezes expiratory wheezes (mild) Cardio: Rate: regular rate Rhythm: regular rhythm Peripheral pulses: P eripheral pulses 2+ throughout GI: Inspection: Yes normal to inspection Palpation (GI): Soft to palpation and nontender Auscultation: normal bowel sounds Back/Spine/Pelvis: Thoracic/Lumbar Spine: thoracic and lumbar spine normal to inspection Skin: General skin exam: no rashes or lesions noted Neuro: General: patient oriented x3, no meningeal signs, no focal motor deficits and normal sensation to monofilament Cranial nerves: Yes Equal, round and reactive pupils present Cognition (Neuro): normal cognition S peech: No Abnormal speech present Gait exam (Neuro): Normal gait present M otor exam (neuro): 5/5 motor strength present throughout Extrem: General: Yes normal to inspection, Yes no calf tenderness and No edema Course Course Course Narrative: This is a Rapid Medical Exam performed in triage by Minerva Gregory PA-C. Full HPI, ROS and PE to be performed by primary ED provider. 29-year-old female presenting to the ED c/o chest pain/tightness, SOB, fatigue, ear pain, lightheadedness/dizziness x few days PE: NAD, nontoxic appearing, ambulating with steady gait, talking in complete sentences Plan: EKG, labs, CXR, SARs Medical Decision Making Medical Decision Making MDM Narrative: 29yo female with a history of seizures, asthma presents to the ER with complaints of chest tightness, dizziness, cough, left ear pain, nausea x 3 days. No shortness of breath, vomiting, diarrhea, abdominal pain, headache, neck pain, neck stiffness, fevers, chills, skin rash. No recent travel or sick contact. Bilateral TM effusion with no erythema or signs or symptoms concerning for otitis media Mild expiratory wheezing with no hypoxia or tachypnea on exam otherwise exam was benign. Reviewed labs, EKG, chest x-ray, viral testing from triage all normal. Patient likely has viral syndrome which is causing a mild asthma exacerbation and has bilateral effusions which is causing some your pain. I did recommend that she continue her albuterol as needed. I will add a low-dose prednisone and Claritin. Recommend continue supportive measures. Reviewed worrisome signs and symptoms of when to return to the emergency room. Comfortable plan for discharge home. Differential Diagnosis Differential Diagnoses: The differential diagnosis associated with the presentation includes Viral syndrome, influenza, pneumonia Low suspicion for ACS with nonischemic EKG and flat troponin with symptoms for great greater than 3 days Low suspicion for PE with perc 0 Admission/Observation Consideration of admission/observation: Escalation of care including admission/observation considered Lab Data MDM Lab Attestation statement: I reviewed the patient's lab results. 02/12/25 19:49 02/12/25 19:49 Labs: Lab Results 02/12/25 02/12/25 Range/Units 19:49 22:55 WBC 10.9 H (4.8-10.8) X10*3/uL RBC 4.47 (4.20-5.50) X10*6/uL Hgb 13.0 (12.0-16.0) g/dl Hct 39.0 (37.0-47.0) % MCV 87.2 (80.0-98.0) fL MCH 29.1 (27.0-33.0) pg MCHC 33.3 (31.0-35.0) g/dl RDW 12.3 (11.0-16.0) % Plt Count 278 (160-400) X10*3/uL MPV 9.6 (9.4-12.3) fL Immature Gran % (Auto) 0.2 (0.0-0.4) % Neut % (Auto) 64.5 (45-73) % Lymph % (Auto) 24.7 (20-40) % [place] % (Auto) 7.2 (2-11) % Eos % (Auto) 2.7 (0-4) % Baso % (Auto) 0.7 (0-2) % Lymph # (Auto) 2.7 (1.2-4.9) X10*3/uL [place] # (Auto) 0.8 (0.1-1.2) X10*3/uL Eos # (Auto) 0.3 (0.0-0.4) X10*3/uL Baso # (Auto) 0.1 (0.0-0.2) X10*3/uL Abs Immat Gran (auto) 0.02 (0.00-0.03) X10*3/uL Absolute Neuts (auto) 7.0 (2.0-8.3) x10*3/uL Absolute Nucleated RBC 0.000 (0.0-0.012) X10*3/uL Nucleated RBC % (auto) 0.0 (0.0-0.2) /100WBC Sodium 140 (135-145) mmol/L Potassium 3.6 (3.3-5.1) mmol/L Chloride 107 (96-108) mmol/L Carbon Dioxide 26 (22-29) mmol/L Anion Gap 11 L (12-20) BUN 8 L (9-16) mg/dL Creatinine 0.64 (0.5-1.4) mg/dL Estim Creat Clear Calc 139.3 Estimated GFR > 60 Random Glucose 89 (60-115) mg/dL Calcium 9.6 (8.4-10.2) mg/dL Magnesium 2.1 (1.6-2.6) mg/dL Total Bilirubin 0.4 (0.0-1.0) mg/dL Direct Bilirubin 0.2 (0.0-0.5) mg/dL AST 37 H (5-31) U/L ALT 40 H (0-31) U/L Alkaline Phosphatase 70 (39-117) U/L Troponin I High Sens < 2.7 (<3.5-17.0) ng/L Total Protein 7.9 (6.5-8.0) g/dL Albumin 4.4 (3.5-5.0) g/dL Influenza Type A (PCR) NEGATIVE (Negative) Influenza Type B (PCR) NEGATIVE (Negative) RSV RNA Qual (PCR) NEGATIVE (Negative) SARS-CoV-2 RNA (RT-PCR) NEGATIVE (Negative) S. pyogenes GrpA SANDY Negative (Negative) Independent Interpretation I performed an independent interpretation of an: EKG and Plain X-Ray Interpretation: I independently viewed the EKG which shows sinus rhythm And reviewed the chest x-ray and agree with the radiology report Radiology Impression Discussion of test interpretation with radiology: I have reviewed the radiologist's reading. Radiologist Impression: [address] [address] XRay Report Signed Patient: Nneka Hamilton MR#: [id number] : 1995 Acct:[id number] Age/Sex: 29 / F ADM Date: 02/12/25 Loc: .ED Attending Dr: Ordering Physician: Minerva Gregory Date of Service: 02/12/25 Procedure(s): XR chest 2V Accession Number(s): [id number] cc: Physician,Unknown ; Minerva Gregory~ Reason for Exam: sob CLINICAL HISTORY: sob Chest Radiographs, 2 views Comparison: 05/03/24 Findings: No cardiomegaly. Normal mediastinal contours. No pneumothorax. No opacity. No pleural effusion. No acute findings in the upper abdomen. No acute fracture. Impression: No acute findings. This document has been electronically signed by: Prudence Bob MD on 02/12/2025 21:20:28 Discharge Plan Discharge Clinical Impression: Viral infection Patient Disposition: Home, Self-Care Instructions: Viral Syndrome (ED) Additional Instructions: Testing for flu, COVID, RSV and strep are negative Your blood work, EKG and chest x-ray are all normal Follow-up with your primary care doctor for any continued symptoms Prescriptions: New prednisone 20 mg tablet 20 mg PO DAILY Qty: 5 0RF loratadine [Claritin] 10 mg tablet 10 mg PO DAILY Qty: 14 0RF No Action ondansetron 4 mg tablet,disintegrating 4 mg PO Q8H PRN (Reason: nausea and vomiting) Qty: 14 0RF magnesium citrate Solution 150 ml PO DAILY PRN (Reason: constipation) Qty: 296 0RF hydrocortisone 2.5 % cream with perineal applicator 1 appl DE DAILY PRN (Reason: hemorrhoids) Qty: 30 0RF Referrals: Physician,Unknown J [Primary Care Provider, Medical] Print Language: Uzbek
[2025-02-12 19:54] LABS: MANUAL DIFF FLAG NO
[2025-02-12 19:56] LABS: Hematocrit 39.0 % (37.0-47.0); Hemoglobin 13.0 g/dl (12.0-16.0); Imm Gran Abs Auto 0.02 X10*3/uL (0.00-0.03); Imm Gran Pct Auto 0.2 % (0.0-0.4); Lymphocytes Absolute Auto 2.7 X10*3/uL (1.2-4.9); Mean Corpuscular HGB Conc 33.3 g/dl (31.0-35.0); Mean Corpuscular Hemoglobin 29.1 pg (27.0-33.0); Mean Corpuscular Volume 87.2 fL (80.0-98.0); NRBC Abs Auto 0.000 X10*3/uL (0.0-0.012); NRBC Pct Auto 0.0 /100WBC (0.0-0.2); Platelet Count 278 X10*3/uL (160-400); Red Blood Count 4.47 X10*6/uL (4.20-5.50); White Blood Count 10.9 X10*3/uL (4.8-10.8)
[2025-02-12 20:03] LABS: Strep A Nucleic Acid Negative (Negative)
[2025-02-12 20:12] LABS: Alanine Aminotransferase 40 U/L (0-31); Albumin Level 4.4 g/dL (3.5-5.0); Alkaline Phosphatase 70 U/L (39-117); Anion Gap 11 (12-20); Aspartate Amino Transferase 37 U/L (5-31); Blood Urea Nitrogen 8 mg/dL (9-16); Calcium 9.6 mg/dL (8.4-10.2); Carbon Dioxide 26 mmol/L (22-29); Chloride 107 mmol/L (96-108); Creatinine Clr Calc Pharmacy 139.3; Estimated Glomerular Filt Rate > 60; Magnesium 2.1 mg/dL (1.6-2.6); Potassium 3.6 mmol/L (3.3-5.1); Sodium 140 mmol/L (135-145); Total Protein 7.9 g/dL (6.5-8.0)
[2025-02-12 20:22] LABS: Troponin-I High Sensitivity < 2.7 ng/L (<3.5-17.0)
--- OUTSIDE RECORDS SUMMARY | 2025-02-12 23:32 | XMS_ITS | Encounter Summary ---
Author Organization [facility] Prior to 12/20/2023 Address [address] [place] [address] Care Team Providers Care Cab Supervisor Name Role Phone William Matta MD Primary Care Provider [phone] Reason for Visit * Reason Onset Date Comments vaginal problems 10/19/2021 Encounter Details Date Type Department Care Team Description 10/19/2021 Telephone OBGYN - [address] [facility] [address] [place] [address] Sondra Song CNM [address] [place] [phone] vaginal problems Social History Tobacco Use Types Packs/Day Years Used Date Smoking Tobacco: Never Smokeless Tobacco: Never Alcohol Use Standard Drinks/Week Comments Yes 0 (1 standard drink = 0.6 oz pur e alcohol) occ Sex Assigned at Date Recorded Female 06/30/2024 8:59 PM E DT Job Start Date Occupation Industry Not on file Not on file Not on file COVID-19 Exposure Response Date Recorded In the last 10 days, have yo u been in contact with someone who was confirmed or suspected to have Coronavirus/COVID-19? Unable to assess 10/09/2021 9:40 AM EDT documented as of this encounter Miscellaneous Notes * Telephone Encounter - Julio C Lewis - 10/19/2021 10:59 AM EDT Pt is up to date on pap. 10-09-21 BD Affirm, gc/chlam negative. Pt still c/o a lot of itch and vaginal inflammation which hurts when she wipes. she also has whitish clear discharge. She denies odor. LMP 8-24 until 8 but pt states this was just spotting upon wiping. Her previous LMP was 08-27-21 * Telephone Encounter - Gabby Bhatt - 10/19/2021 10:54 AM EDT Patient calling , states is having vaginal itch, burning sensation , states was told her vag cultures were negative, but is symptomatic; patient asking if Rx can be called in for relief. Please advsie documented in this encounter Plan of Treatment Not on file documented as of this encounter Visit Diagnoses Not on filedocumented in this encounter Care Teams Cab Supervisor Relationship Specialty Start Date End Date William Matta MD [address] [place] [address] PCP - General Internal Medicine 03/27/21 documented as of this encounter
--- OUTSIDE RECORDS SUMMARY | 2025-02-12 23:32 | XMS_ITS | Encounter Summary ---
Author Organization [facility] [employer] [facility] Prior to 12/20/2023 Address [address] [place] [address] Care Team Providers Care Lead Oxide Mill Tender Name Role Phone William Matta MD Primary Care Provider [phone] Encounter Details Date Type Department Care Team Description 10/26/2021 Orders Only Internal Medicine - [place] 175 [facility] [address] [place] [address], LDN [address] [address] Social History Tobacco Use Types Packs/Day Years [...] was confirmed or suspected to have Coronavirus/COVID-19? No / Unsure 10/27/2021 2:33 PM EDT documented as of this encounter Plan of Treatment Not on file documented as of this encounter Visit Diagnoses Not on filedocumented in this encounter Care Teams Lead Oxide Mill Tender Relationship Specialty Start Date End Date William Matta MD [address] [place] [address] PCP - General Internal Medicine 03/27/21 documented as of this encounter
--- OUTSIDE RECORDS SUMMARY | 2025-02-12 23:32 | XMS_ITS | Encounter Summary ---
Author Organization [facility] Prior to 12/20/2023 Address [address] [place] [address] Care Team Providers Care Central Supply Tech Name Role Phone William Matta MD Primary Care Provider [phone] Encounter Details Date Type Department Care Team Description 08/14/2021 Release of Information Medical Records [address] [place] [id number] Abstract, Provider Social History Tobacco Use Types Packs/Day Years [...] suspected to have Coronavirus/COVID-19? No / Unsure 08/17/2021 10:31 AM EDT documented as of this encounter Plan of Treatment Not on file documented as of this encounter Visit Diagnoses Not on filedocumented in this encounter Care Teams Central Supply Tech Relationship Specialty Start Date End Date William Matta MD [address] [place] [address] PCP - General Internal Medicine 03/27/21 documented as of this encounter
--- OUTSIDE RECORDS SUMMARY | 2025-02-12 23:32 | XMS_ITS | Encounter Summary ---
Author Organization [facility] Address [address] [place] [address] Care Team Providers Care Etl Consultant Name Role Phone William Matta MD Primary Care Provider [phone] Encounter Details Date Type Department Care Team (Late st Contact Info) Description 06/12/2022 Telephone [facility] [address] [place] [address] Telephone Intake, Staff Social History Tobacco Use [...] Date Job End Date starts working at [employer] Not on file Not on file No [...] on filedocumented in this encounter Care Teams Etl Consultant Relationship Specialty Start Date End Date William Matta MD [address] [place] [address] PCP - General 09/04/21 documented as of this encounter
--- OUTSIDE RECORDS SUMMARY | 2025-02-12 23:32 | XMS_ITS | Clinical Summary ---
Author Organization [facility] Address [address] [place] [phone] Phone Care Team Providers Care Fitness Center Attendant Name Role Phone William Matta MD Primary Care Provider [phone] Allergies Active Allergy Reactions Criticality Noted Date Comments Codeine 08/09/2021 Medications levETIRAcetam (KEPPRA) 750 mg tablet Take 1 tablet (750 mg total) by mouth. 2 Active polyethylene glycol (PEG) 17 gram/dose oral powder TAKE 17 GRAMS MIXED IN 8 OUNCES OF LIQUID AND TAKEN BY MOUTH ONCE EVERY DAY 510 g 5 Active tirzepatide, weight loss, (Zepbound) 12.5 mg/0.5 mL injection Inject 0.5 mL (12.5 mg total) under the skin every 7 (seven) days. 2 mL 5 02/20/19 26 Active tirzepatide, weight loss, (Zepbound) 10 mg/0.5 mL injection Inject 0.5 mL (10 mg total) under the skin every 7 (seven) days. 2 mL 5 01/21/20 25 Discontinued Active Problems Problem Noted Date Diagnosed Date Anxiety and depression 06/30/2024 Assessment & Plan (06/30/2024 11:45 AM EDT): I encouraged her to contact her insurance to get set up with therapist again and continue regular exercise. She agreed. Denies SI, HI. Morbid obesity 09/25/2023 Prediabetes 12/18/2022 Goiter 05/30/2022 Abnormal weight gain 05/30/2022 Uncomplicated asthma 05/30/2022 Nonintractable epilepsy without status epileptic us 08/09/2021 Encounters Date Type Department Care Team Description 01/20/2025 Telephone Bariatric Surgery - [place] 175 [facility] [address] [place] [address] Lilliam Cat PA 12/17/2024 Telephone Bariatric Surgery - [place] 175 [facility] [address] [place] [address] Lilliam Cat PA 12/03/2024 Telephone [facility] [address] [place] [phone] William Matta MD 11/24/2024 Telephone Bariatric Surgery - [place] 175 [facility] [address] [place] [address] Lilliam Cat PA from Last 3 Months Immunizations Immunization Administration Dates Next Due HPV 9-valent (Gardisil) 9yo to less than 46yo ,06/30/2024 08/30/2024 Surgical History Surgery Date Site/Laterality Comments SECTION PROCEDURE: [place] DELIVERY ONLY; COMMENT: 2017 SECTION PROCEDURE: [place] DELIVERY ONLY; COMMENT: 2020 Medical History Medical History Date Comments Epilepsy ([facility] V24, [facility] V28) DX:Epilepsy ([facility]) BRCA gene positive DX:BRCA gene positive Family [...] Care Team (Late st Contact Info) Description 03/17/2025 10:15 AM EST Office Visit Bariatric Surgery - [address] [place] [address] Lilliam Cat PA [address] [place] [phone] Health Maintenance Due Date Last Done Comments Hepatitis B Vaccines (1 of 3 - 19+ 3-dose series) 2013 Pneumococcal Vaccine: Pediatrics (0 to 5 Years) and At-Risk Patients (6 to 49 Years) (1 of 2 - PCV) 2013 Social Influencers of Health Screening 01/28/2022 Depression Screening 02/19/2024 COVID-19 Vaccine (1 - 2024-2 6 season) 2024 Influenza Vaccine (#1) 2024 HPV [...] Procedure Name Priority Date/Time Associated Diagnosis Comments EXTERNAL XRAY REPORT 12/03/2024 EXTERNAL XRAY REPORT 12/03/2024 HEPATITIS C ANTIBODY Routine 07/17/2024 11:24 AM EDT Screen for STD (sexually transmitted disease) HPV WITH REFLEX GENOTYPE Routine 06/30/2024 11:35 AM EDT Screening for cervical cancer LIPID PANEL Routine 12/22/2021 HM HIV SCREENING Routine 08/17/2021 from Last 3 Months or Most Recently Relevant to Health Maintenance Results * External Xray Report (12/03/2024) Only the most recent of2 resultswithin the time period is included. Anatomical Region Laterality Modality Radiographic Renate ging us Provider [facility] XR PROCEDURES Final Result * Hepatitis C antibody (07/17/2024 11:24 AM EDT) Hepatitis C Antibody Negative Negative LAB CHEMISTRY METHOD 07/17/2024 4:37 PM EDT [facility] Blood Venous blood specimen / Unknown Venipuncture / Unknown 07/17/2024 11:24 AM EDT 07/17/2024 11:24 AM EDT Nuvia Echevarria MD LAB BLOOD ORDERABLES Final Result [facility] [address] [place] [address], [place] [phone] * HPV with reflex genotype (06/30/2024 11:35 AM EDT) [facility] HPV Negative Negative LAB MICROBIOLOGY METHOD 07/01/2024 2:21 PM EDT [facility] Brushing/Spatula Cervix uteri structure / Unknown 06/30/2024 11:35 AM EDT 07/01/2024 6:21 AM EDT Nuvia Echevarria MD LAB MOLECULAR DIAGNOSTICS O RDERABLES Final Result [facility] [address] [place] [address], [place] [phone] * Lipid panel (12/22/2021) [facility] LDL/HDL Ratio 4 Triglycerides 130 mg/dL Cholesterol 152 mg/dL HDL 40 mg/dL LDL Cholesterol 86 mg/dL Blood Venous blood specimen / Unknown Historical [facility] LAB BLOOD ORDERABLES Olimpia l Result * HIV Screening (08/17/2021) Pathologist [facility] HIV Screening Abstracted Historical Provider HEALTH MAINTENANCE Final Result from Last 3 Months or Most Recently Relevant to Health Maintenance Insurance [place] [address] Care Teams Fitness Center Attendant Relationship Specialty Start Date End Date William Matta MD [address] [place] [id number] PCP - General Internal Medicine 04/06/24
--- OUTSIDE RECORDS SUMMARY | 2025-02-12 23:32 | XMS_ITS | Clinical Summary ---
Author Organization [facility] Address [address] [place] [address] Care Team Providers Care Bag Making Machine Operator Name Role Phone William Matta MD Primary Care Provider [phone] Allergies Active Allergy Reactions Criticality Noted Date [...] liver cirrhosis, depression, cancers of colon, liver, METER INSTALLER system and etc Will obtain labs as [...] Date Job End Date starts working at [employer] Not on file Not on file No [...] Drivers of Health Yeimi ual Screening 02/19/2024 Influenza Vaccine (#1) 2024 11/17/2018 COVID-19 Vaccine (3 - 2024- season) 2024, 10/06/2020 DTaP,Tdap,and Td Vaccines (4 - Td or Tdap) 05/08/2031 05/07/2021, 02/05/2020, 08/19/2017 Insurance HSNO/FREE CARE Care Teams Bag Making Machine Operator Relationship Specialty Start Date End Date William aMtta MD [address] [place] [address] PCP - General 09/04/21
--- OUTSIDE RECORDS SUMMARY | 2025-02-12 23:32 | XMS_ITS | Encounter Summary ---
Author Organization [facility] Prior to 12/20/2023 Address [address] [place] [address] Care Team Providers Care Frame Feeder Name Role Phone William Matta MD Primary Care Provider [phone] Encounter Details Date Type Department Care Team Description 07/05/2022 Human Factors Engineer Report Medical Records [address] [place] [address] Harvey Medina MD Social History Tobacco Use Types Packs/Day Years Used Date Smoking Tobacco: Never Smokeless Tobacco: Never Alcohol Use Standard Drinks/Week Comments Yes 0 (1 standard drink = 0.6 oz pur e alcohol) occ Sex Assigned at Date Recorded Female 06/30/2024 8:59 PM E DT Job Start Date Occupation Industry Not on file Not on file Not on file documented as of this encounter Plan of Treatment Not on file documented as of this encounter Visit Diagnoses Not on filedocumented in this encounter Care Teams Frame Feeder Relationship Specialty Start Date End Date William Matta MD [address] [place] [address] PCP - General Internal Medicine 03/27/21 documented as of this encounter
[2025-02-12 23:35] LABS: Resp Syncy Virus RNA Qual PCR NEGATIVE (Negative); SARS COV2 PCR INHOUSE NEGATIVE (Negative)
[2025-02-12 23:57] VITALS: BP 142/78; PULSE 71; RESP 20; TEMP 36.3; O2SAT 100
== END 2025-02-12 23:58 | disposition home or self-care (01) ==
PROVIDERS: Nurse Practitioner Family; Physician Assistant; Emergency Provider Emergency Medicine
DX: B34.9 Viral infection, unspecified (principal); R07.9 Chest pain, unspecified; R42 Dizziness and giddiness; Z03.818 Encounter for observation for suspected exposure to other biological agents ruled out; R05.9 Cough, unspecified; H92.02 Otalgia, left ear; R11.0 Nausea; R06.02 Shortness of breath
CPT/HCPCS: 71046; 80048; 80076; 83735; 84484; 85025; 87637; 87651; 93005; 99283

== ENCOUNTER → 2025-02-12 19:32 | Outpatient (BNV) | payer OTHER, SELFPAY | PROVIDERS: Emergency Provider Emergency Medicine; Visit Provider Internal Medicine Cardiovascular Disease | DX: R07.9 Chest pain, unspecified (principal) | CPT/HCPCS: 93010 ==

== ENCOUNTER → 2025-02-12 19:41 | Outpatient (BNV) | payer OTHER, SELFPAY | PROVIDERS: Visit Provider Radiology Diagnostic Radiology | DX: R06.02 Shortness of breath (principal) | CPT/HCPCS: 71046 ==